=== PATIENT | male | born 1975 | race Two or more races ===

== ENCOUNTER 2016-10-03 17:00 | Emergency (ER) | payer MEDICAID ==
--- NOTE | 2016-10-03 18:37 | CT ---
HEAD W/O CON History: Altered mental status. Comparison: None. Procedure: 1 mm axial images were obtained through the head from the vertex to the base of the skull without intravenous contrast. Stacked reconstructed 5 mm images were then obtained in the axial, coronal and sagittal planes. Findings: There is evidence of abnormal low attenuation within the left temporal parietal region with loss of the hayes/white matter differentiation. The appearance suggests a subacute area of left MCA infarction. No evidence of midline shift is seen. No mass or mass effect is identified. No evidence of intra or extra-axial fluid collections or hemorrhage is visualized. A high density calcific focus is seen along the anterior margin of the low-attenuation area, seen best on axial image #9 possibly reflecting the site of occlusion. The basilar cisterns remain uneffaced. No acute osseous abnormalities are visualized. Impression: 1. Abnormal low attenuation with loss of the hayes/white matter differentiation within the left temporal and parietal lobes suggesting a subacute area of left MCA infarction. Findings were discussed with Dr. Ugarte at 1833 hours.
[2016-10-03 18:43] LABS: ABSOLUTE NEUTROPHIL COUNT 7.4 K/mm3 (1.8-7.7); BASO % 0.3 % (0.2-1.0); EOS # 0.1 (0.0-0.5); EOS % 1.1 % (0.9-2.9); HEMOGLOBIN 13.8 gm/l (14.0-18.0); IMM NEUT% 0.4 % (0-1); LYMPH # 2.4 (1.0-4.8); LYMPH % 21.7 % (15-45); MEAN CELL VOLUME 73.7 fl (80.0-94.0); MEAN CORPUSCULAR HEMOGLOBIN 23.1 pg (27.0-31.0); MEAN CORPUSCULAR HGB CONC 31.4 g/dl (33.0-37.0); MEAN PLATELET VOLUME 10.2 fl (7.4-10.4); MONO % 9.2 % (4-12); NEUT % 67.3 % (43-75); PLATELET COUNT 259 K/mm3 (130-400); RED CELL DISTRIBUTION WIDTH 25.7 % (11.5-14.5)
[2016-10-03 18:46] LABS: ALB/GLOB RATIO 1.1 (>1.0); ALBUMIN 3.9 gm/dL (3.5-5.7); CALCIUM 9.1 mg/dL (8.6-10.3)
--- NOTE | 2016-10-03 18:48 | RAD ---
CHEST-AP BEDSIDE HISTORY: Altered mental status. COMPARISONS: 08/01/2016. FINDINGS: A single view of the chest demonstrates an indwelling left-sided PICC catheter with its tip projecting at the level of the atrial caval junction. The heart size is stable. There is no infiltrate, effusion or pneumothorax is seen. The hilar and mediastinal structures are intact. IMPRESSION: 1. A left-sided PICC catheter with its tip located at the level of the atrial caval junction. 2. An otherwise negative portable chest.
[2016-10-03] MEDS ORDERED: MORPHINE SULFATE 4 MG/ML SYRINGE ONE (19:17)
[2016-10-03] MEDS ORDERED: ONDANSETRON 4 MG/2ML 2 ML VIAL ONE (19:17)
[2016-10-03 21:21] LABS: ANISOCYTOSIS 2+; PLATELET ESTIMATE NORMAL (NORMAL)
== END 2016-10-03 22:04 | disposition other institution (70) ==
LOC: ED 17:00
DX: I63.9 Cerebral infarction, unspecified (principal)
CPT/HCPCS: 83605; 85025; 87040 ×2; 80053; 71010; 70450; 96375; 99285 ×2; 96374; 36415; 93005; J2270; J2405